=== PATIENT | male | born 1995 | race Caucasian/White ===

== ENCOUNTER → 2024-10-04 07:05 | Outpatient (REF) | payer MEDICARE, SELFPAY | LOC: HWRAD 07:05 | PROVIDERS: ATTENDING PHYSICIAN Nurse Practitioner Family; FAMILY PHYSICIAN Student in an Organized Health Care Education/Training Program | DX: R79.89 Other specified abnormal findings of blood chemistry (principal) | CPT/HCPCS: 76700; 93975 ==

== ENCOUNTER 2025-02-16 16:27 | Emergency (ER) | payer MEDICARE, SELFPAY ==
[2025-02-16 16:29] VITALS: BP 151/90
--- NOTE | 2025-02-16 17:25 | ED.GENMED ---
History of Present Illness
General
Chief Complaint: Crisis Evaluation
Time Seen by Provider: 02/16/25 17:14
History of Present Illness
History of Present Illness:
29-year-old male presents the emergency department for evaluation of depression and suicidal ideation. He admits to overdosing on his Trileptal, Lexapro, and hydroxyzine 2 days ago with the intent to harm himself. He took his regular doses of
these medications today but denies any additional coingestions. Denies alcohol or illicit substance use. He is here voluntarily and wishes to sign in for inpatient treatment
Past History
Past History
ED Past Medical History: Psychiatric (Bipolar, depression, oppositional defiant disorder, anxiety, Borderline personality disorder) and Other (Hemochromatosis, Headache, )
ED Past Surgical History: Appendectomy
Social History
Tobacco: Smoker
Alcohol: None
Personal: Single
Living: with family
Employment: Employed
Family History
Family History: Other (Hereditary hemochromatosis)
Review of Systems
Review of Systems
Allergies reviewed?: Yes
All Other Systems: ROS reviewed and negative except as documented in HPI and ROS
Phy Exam
Physical Exam
Physical Exam:
GEN: Well appearing, NAD, WDWN
HEENT: Oral mucosa moist, no scleral icterus
Cardiac: Regular rate
Lung: No respiratory distress, no tachypnea
MSK: No gross deformity or injuries
Skin: Good color, no pallor or jaundice, no rashes
Neuro: AO x3, moves all extremities freely
Psych: Calm, cooperative
Course
Orders/Labs/Results
Orders:
Orders
02/16/25 16:28
Crisis Consult Urgent
Reason for Consult: +SI with plan and attempt on screening
02/16/25 17:25
Electrocardiogram (*1) Urgent
Reason for Study: QTc Monitoring
EKG- Treatment ONCE
02/16/25 17:32
Acetaminophen [Tylenol] 650 mg PO NOW STA
02/16/25 17:35
Acetaminophen Urgent
Alcohol Urgent
Complete Blood Count/No Diff Urgent
Comprehensive Metabolic Panel Urgent
Salicylate Urgent
Urinalysis Reflex To Culture Urgent
Date Specimen was Collected: 02/16/25
Time Specimen was Collected: 17:29
Urine Drug Abuse Screen Urgent
Date Specimen was Collected: 02/16/25
Time Specimen was Collected: 17:29
02/16/25 19:08
Add On- LAB Urgent
Comments:: urine drug screen
Tests Added?: urine drug screen, UA in Lab
02/16/25 19:11
observation [ED Special Safety Observation] ONCE
Observation level: One to Two
Abnormal Lab Results
02/16/25
17:35
MCV 79.4 L fL
(80.0-94.0)
MCH 26.9 L pg
(27.0-31.0)
RDW 16.0 H %
(11.5-14.5)
Glucose 105 H mg/dl
(70-99)
ALT 80 H U/L
(0-50)
Salicylates < 1.0 L mg/dl
(2.0-20.0)
Acetaminophen < 10 L ug/ml
(10-30)
02/16/25 17:35
02/16/25 17:35
Vital Signs
Initial and Last Documented VS:
Initial Vital Signs
Temp Pulse Resp BP Pulse Ox
98.4 F 90 16 151/90 97
02/16/25 16:29 02/16/25 16:29 02/16/25 16:29 02/16/25 16:29 02/16/25 16:29
Last Documented Vital Signs
Temp Pulse Resp BP Pulse Ox
98.4 F 90 16 151/90 97
02/16/25 16:29 02/16/25 16:29 02/16/25 16:29 02/16/25 16:29 02/16/25 16:29
MDM/Problems Addressed
MDM/Problems Addressed:
Patient's ingestions were greater than 24 hours ago thus no further observation is warranted. He appears to be mentating appropriately and EKG shows normal QT interval and normal QRS duration. He is medically cleared, 201 signed, will be
transferred to [place] later this evening
*Critical Care Note
Total Time (30-74mins, 75-104mins- exclusive of procedures): Not Applicable
ED Attending Note
-
Portions of this chart may have been created with voice recognition software.� Occasional wrong word or��sound alike� substitutions may have occurred due to the inherent limitations of voice recognition software.
Discharge Plan
Departure
Patient Disposition: Psych Facility
Date of Disposition: 02/16/25
Time of Disposition: 18:14
Discharge Problem:
Depression with suicidal ideation, Polysubstance overdose
Prescriptions:
No Action
lithium carbonate 300 MG capsule
1 cap PO HS
aripiprazole [Abilify] 5 MG tablet
1 tab PO HS
cariprazine [Vraylar] 3 MG capsule
1 cap PO .NOON
valacyclovir 1 gram tablet
1,000 mg PO BID Qty: 14 0RF
Referrals:
UNKNOWN - PT NOT,INTERVIEWE [Unknown Provider] -
Interventions
Interventions:
*Risk Screen - Suicide Last Done: 02/16/25 16:27
*General Assessment Last Done: 02/16/25 16:29
*ED COVID-19 Vaccine History Last Done: 02/16/25 16:29
ED-Psychological Assessment Last Done: 02/16/25 18:00
Discharge Date and Time
Print Language: MACANESE
[2025-02-16] MEDS: TYLENOL 650 MG PO (17:34)
[2025-02-16 17:44] LABS: Hematocrit 43.9 % (39.0-52.0); Hemoglobin 14.9 g/dL (13.0-18.0); Mean Corp Hgb Conc. 33.9 g/dL (33.0-37.0); Mean Corpuscular Hgb 26.9 pg (27.0-31.0); Mean Corpuscular Volume 79.4 fL (80.0-94.0); Mean Platelet Volume 8.5 fL (7.4-10.4); Platelet Count 266 10^3/uL (130-400); Red Blood Cell Count 5.53 10^6/uL (4.70-6.10); White Blood Cell Count 8.8 10^3/uL (4.8-10.8)
[2025-02-16 17:48] LABS: Urine Albumin Negative (Neg - Trace); Urine Bilirubin Negative (Negative); Urine Character Clear (Clear); Urine Color Yellow; Urine Glucose Negative (Negative); Urine Ketone Negative (Negative); Urine Leukocyte Negative (Negative); Urine Nitrite Negative (Negative); Urine Occult Blood Negative (Negative); Urine Urobilinogen Negative (Neg - 1+)
[2025-02-16 17:56] LABS: ALT (SGPT) 80 U/L (0-50); AST (SGOT) 46 U/L (17-59); Acetaminophen < 10 ug/ml (10-30); Albumin 4.3 g/dl (3.5-5.0); Alcohol None Detected; Alkaline Phosphatase 65 U/L (38-126); Blood Urea Nitrogen 9 mg/dl (9-20); Calcium 9.5 mg/dl (8.4-10.2); Carbon Dioxide 24 mmol/L (22-30); Chloride 106 mmol/L (98-107); Glucose 105 mg/dl (70-99); Potassium 4.3 mmol/L (3.5-5.1); Salicylate < 1.0 mg/dl (2.0-20.0); Sodium 141 mmol/L (135-145); Total Bilirubin 0.5 mg/dl (0.2-1.3); Total Protein 7.3 g/dl (6.3-8.2); eGFR > 60.00
[2025-02-16 19:24] LABS: Amphetamines Negative (Negative); Barbiturates Negative (Negative); Benzodiazepines Negative (Negative); Buprenorphine Negative (Negative); Cocaine Negative (Negative); Marijuana Negative (Negative); Methadone Negative (Negative); Methamphetamines Negative (Negative); Opiates Negative (Negative); Phencyclidine Negative (Negative); Tricyclic Antidepressants Negative (Negative)
[2025-02-16 20:59] VITALS: BP 144/89; BMI 35.0
== END 2025-02-16 22:29 ==
LOC: EMR 16:27
PROVIDERS: Physician Assistant; EMERGENCY PHYSICIAN Emergency Medicine; FAMILY PHYSICIAN Student in an Organized Health Care Education/Training Program
DX: F32.A Depression, unspecified (principal); T50.992A Poisoning by other drugs, medicaments and biological substances, intentional self-harm, initial encounter; R45.851 Suicidal ideations; F17.200 Nicotine dependence, unspecified, uncomplicated
CPT/HCPCS: 99285; 80053; 80143; 80179; 80306; 81003; 82077; 85027; 93005

== ENCOUNTER → 2025-08-14 07:19 | Outpatient (REF) | payer MEDICARE, MEDICAID, SELFPAY | LOC: RCS 07:19 | PROVIDERS: ATTENDING PHYSICIAN Registered Nurse | DX: R06.02 Shortness of breath (principal) | CPT/HCPCS: 93017 ==

== ENCOUNTER 2025-08-29 11:30 | Emergency (ER) | payer MEDICAID, MEDICARE, SELFPAY ==
[2025-08-29 11:35] VITALS: BP 140/88
--- NOTE | 2025-08-29 13:32 | ED.GENMED ---
History of Present Illness
General
Chief Complaint: Crisis Evaluation
Time Seen by Provider: 08/29/25 13:01
History of Present Illness
History of Present Illness:
Patient is a 29-year-old man with history of bipolar disorder schizophrenia presenting to the emergency department for crisis evaluation. Patient saw psychiatrist yesterday who recommended treatment and patient was extremely upset about that. He
states that he wanted to hurt her but had no plan as to how he was going to hurt his psychiatrist. Today he came in for further evaluation. At this time he denies any SI or HI. Denies any hallucinations or delusions. He has no medical complaints
at this time. He is on his medications as prescribed.
Past History
Past History
ED Past Medical History: Psychiatric (Bipolar, depression, oppositional defiant disorder, anxiety, Borderline personality disorder) and Other (Hemochromatosis, Headache, )
ED Past Surgical History: Appendectomy
Social History
Tobacco: Smoker
Alcohol: None
Personal: Single
Living: with family
Employment: Employed
Family History
Family History: Other (Hereditary hemochromatosis)
Phy Exam
Physical Exam
Physical Exam:
GENERAL: in no acute distress
HEENT: normocephalic, extraocular movements intact
NECK: normal inspection
RESPIRATORY: no respiratory distress
CARDIOVASCULAR: regular rate and rhythm
EXTREMITIES: no edema/swelling
NEUROLOGIC: awake and alert, moves all extremities
SKIN: warm
Course
Orders/Labs/Results
Orders:
Orders
08/29/25 11:41
1:1 Observation - Suicide/ Violent Behavior As Directed
Crisis Consult Urgent
Reason for Consult: SI, HI
08/29/25 12:17
Crisis Consult Urgent
Reason for Consult: SI, HI
Vital Signs
Initial and Last Documented VS:
Initial Vital Signs
Temp Pulse Resp BP Pulse Ox
98.9 F 88 16 140/88 96
08/29/25 11:35 08/29/25 11:35 08/29/25 11:35 08/29/25 11:35 08/29/25 11:35
Last Documented Vital Signs
Temp Pulse Resp BP Pulse Ox
98.9 F 88 16 140/88 96
08/29/25 11:35 08/29/25 11:35 08/29/25 11:35 08/29/25 11:35 08/29/25 13:34
MDM/Problems Addressed
Differential Diagnosis Includes:
Patient is a 29-year-old male with history of bipolar disorder, schizophrenia presenting to the emergency department for crisis evaluation. On arrival vitals unremarkable and exam is reassuring. Patient has no medical complaints. He is medically
clear for crisis evaluation. At this time patient has no suicidal or homicidal ideation and is not a threat or harm to himself or others so he does not meet criteria for involuntary commitment.
Crisis evaluated patient and discussed with patient psychiatrist. Will plan for outpatient follow-up.
*Pulse Oximetry
SaO2: 96
Oxygen Mode of Delivery: Room air
Patient hypoxic: no
*Critical Care Note
Total Time (30-74mins, 75-104mins- exclusive of procedures): Not Applicable
ED Attending Note
-
Portions of this chart may have been created with voice recognition software.� Occasional wrong word or��sound alike� substitutions may have occurred due to the inherent limitations of voice recognition software.
Discharge Plan
Departure
Patient Disposition: Home (Routine Discharge)
Date of Disposition: 08/29/25
Time of Disposition: 14:39
Patient with high blood pressure during this ER visit?: Yes
Discharge Problem:
Impulsiveness
Prescriptions:
No Action
lithium carbonate 300 MG capsule
1 cap PO HS
aripiprazole [Abilify] 5 MG tablet
1 tab PO HS
cariprazine [Vraylar] 3 MG capsule
1 cap PO .NOON
valacyclovir 1 gram tablet
1,000 mg PO BID Qty: 14 0RF
Referrals:
UNKNOWN - PT NOT,INTERVIEWE [Family Provider]
Interventions
Interventions:
*Risk Screen - Suicide Last Done: 08/29/25 11:35
*General Assessment Last Done: 08/29/25 12:14
*Neglect/Abuse Screening Last Done: 08/29/25 11:35
*ED- Fall Risk Assessment Last Done: 08/29/25 12:14
*ED COVID-19 Vaccine History Last Done: 08/29/25 12:14
*ED Influenza Vaccine History Last Done: 08/29/25 12:14
ED-Psychological Assessment Last Done: 08/29/25 12:14
Discharge Date and Time
Print Language: PORTUGUESE
== END 2025-08-29 14:44 | disposition home or self-care (01) ==
LOC: EMR 11:30
PROVIDERS: EMERGENCY PHYSICIAN Student in an Organized Health Care Education/Training Program
DX: F31.9 Bipolar disorder, unspecified (principal); F20.9 Schizophrenia, unspecified; F91.3 Oppositional defiant disorder; F41.9 Anxiety disorder, unspecified; F60.3 Borderline personality disorder; E83.110 Hereditary hemochromatosis; F17.200 Nicotine dependence, unspecified, uncomplicated; Z90.49 Acquired absence of other specified parts of digestive tract
CPT/HCPCS: 99282